=== PATIENT | male | born 1990 | race Caucasian/White ===

== ENCOUNTER 2019-12-04 11:58 | Emergency (ER) | payer BC, OTHER ==
[2019-12-04] MEDS ORDERED: LORazepam 2 MG/ML SDV IVPUSH ONE (12:11)
[2019-12-04] MEDS ORDERED: Sodium Chloride 0.9% 10 ML Syringe FLUSH PRN (12:11)
[2019-12-04] MEDS ORDERED: Sodium Chloride 0.9% 1,000 ML IV ONE (12:11)
--- NOTE | 2019-12-04 12:16 | EDM.PDOC ---
ED HPI GENERAL MEDICAL PROBLEM - General Chief Complaint: Lower Extremity Injury/Pain Stated Complaint: SEIZURE Time Seen by Provider: 12/04/19 12:04 Source of Information: Reports: Patient, Family History Limitations: Reports: No Limitations - History of Present Illness INITIAL COMMENTS - FREE TEXT/NARRATIVE: Patient is an unfortunate 29-year-old male who presents emergency Department today with complaint of right leg pain. Patient was in his normal state of health until proximal 45 minutes prior to arrival when he developed sudden onset of pain to his right groin. He reports the pain has been there ever since and is worse with range of motion or palpation improves with rest does not alleviate. The friend reports that the patient was riding in the car on the way back from [place] after they been drinking all last night and he had a grand mal seizure. The friend reports that the patient lost consciousness was still breathing but was shaking all over, a she did not lose control of his bowel or bladder and the friend reports that for 10 minutes after he had confusion upon arrival emergency department patient is alert and oriented 3 Right Upper Leg Pain Score (Numeric/FACES): 5 - Related Data Allergies Allergy/AdvReac Type Severity Reaction Status Date / Time No Known Allergies Allergy Verified 12/04/19 12:18 Home Meds: Home Meds . [No Known Home Meds] 12/04/19 [History] Past Medical History Neurological History: Reports: Seizure Other Neuro History: has not had a seizure in about 10 years and is not currently on medications. Social & Family History - Tobacco Use Smoking Status *Q: Never Smoker Second Hand Smoke Exposure: No - Caffeine Use Caffeine Use: Reports: Coffee - Recreational Drug Use Recreational Drug Use: No Review of Systems - Review of Systems Review Of Systems: See Below Constitutional: Denies: Chills, Fever Musculoskeletal: Reports: Leg Pain Neurological: Reports: Seizure. Denies: Confusion, Dizziness ED EXAM, GENERAL - Physical Exam Exam: See Below Exam Limited By: No Limitations General Appearance: Alert, WD/WN, Moderate Distress Head: Atraumatic, Normocephalic Neck: Normal Inspection, Supple, Non-Tender, Full Range of Motion Respiratory/Chest: No Respiratory Distress, Lungs Clear, Normal Breath Sounds, No Accessory Muscle Use, Chest Non-Tender Cardiovascular: Normal Peripheral Pulses, Regular Rate, Rhythm, No Edema GI/Abdominal: Normal Bowel Sounds, Soft, Non-Tender, No Organomegaly, No Distention, No Abnormal Bruit, No Mass Back Exam: Normal Inspection, Full Range of Motion, NT Extremities: Normal Inspection, Other (Severe tenderness to right groin, distal neurovascular is intact) Neurological: Alert, Oriented. No: Normal Gait Skin Exam: Warm, Dry, No Rash Course - Vital Signs Last Recorded V/S: Last Vital Signs Temp 97 F 12/04/19 12:04 Pulse 109 H 12/04/19 12:04 Resp 16 12/04/19 12:04 BP 124/77 12/04/19 12:04 Pulse Ox 95 12/04/19 12:04 - Orders/Labs/Meds Orders: Active Orders 24 hr Category Date Time Status NPO [Nothing Per Oral Diet] [DIET] Diet 12/04/19 Dinner Active Hip Min 1V w Pelvis Rt [CR] Stat Exams 12/04/19 15:08 Taken Sodium Chloride 0.9% [Saline Flush] Med 12/04/19 12:11 Active 10 ml FLUSH ASDIRECTED PRN levETIRAcetam [Keppra] 500 mg Med 12/04/19 15:36 Active Sodium Chloride 0.9% [Normal Saline] 100 ml IV ONETIME Saline Lock Insert [OM.PC] Stat Oth 12/04/19 12:11 Ordered Seizure Precautions [OM.PC] Routine Oth 12/04/19 12:11 Ordered Medication Orders Levetiracetam 500 mg/ Sodium (Chloride) 105 mls @ 400 mls/hr IV ONETIME ONE Stop: 12/04/19 15:50 Sodium Chloride (Saline Flush) 10 ml FLUSH ASDIRECTED PRN PRN Reason: Keep Vein Open Last Admin: 12/04/19 12:35 Dose: 10 ml Labs: Laboratory Tests 12/04/19 12/04/19 12/04/19 Range/Units 12:30 12:30 14:20 WBC 14.21 H (4.23-9.07) K/mm3 RBC 5.60 (4.63-6.08) M/mm3 Hgb 17.1 (13.7-17.5) gm/dl Hct 47.8 (40.1-51.0) % MCV 85.4 (79.0-92.2) fl MCH 30.5 (25.7-32.2) pg MCHC 35.8 H (32.2-35.5) g/dl RDW Std Deviation 40.6 (35.1-43.9) fL Plt Count 301 (163-337) K/mm3 MPV 10.4 (9.4-12.3) fl Neut % (Auto) 87.7 H (34.0-67.9) % Lymph % (Auto) 5.7 L (21.8-53.1) % Quay % (Auto) 5.0 L (5.3-12.2) % Eos % (Auto) 0 L (0.8-7.0) Baso % (Auto) 0.3 (0.1-1.2) % Neut # (Auto) 12.46 H (1.78-5.38) K/mm3 Lymph # (Auto) 0.81 L (1.32-3.57) K/mm3 Quay # (Auto) 0.71 (0.30-0.82) K/mm3 Eos # (Auto) 0.00 L (0.04-0.54) K/mm3 Baso # (Auto) 0.04 (0.01-0.08) K/mm3 Sodium 139 (136-145) mEq/L Potassium 4.5 (3.5-5.1) mEq/L Chloride 101 (98-107) mEq/L Carbon Dioxide 18 L (21-32) mEq/L Anion Gap 24.5 H (5-15) BUN 11 (7-18) mg/dL Creatinine 1.2 (0.7-1.3) mg/dL Est Cr Clr Drug Dosing TNP Estimated GFR (MDRD) > 60 (>60) mL/min BUN/Creatinine Ratio 9.2 L (14-18) Glucose 153 H (74-106) mg/dL Calcium 9.6 (8.5-10.1) mg/dL Total Bilirubin 0.4 (0.2-1.0) mg/dL AST TNP ALT 31 (16-63) U/L Alkaline Phosphatase 57 (46-116) U/L Total Protein 8.7 H (6.4-8.2) g/dl Albumin 4.6 (3.4-5.0) g/dl Globulin 4.1 gm/dL Albumin/Globulin Ratio 1.1 (1-2) TSH 3rd Generation 1.290 (0.358-3.74) uIU/mL Urine Color Yellow (Yellow) Urine Appearance Clear (Clear) Urine pH 6.0 (5.0-8.0) Ur Specific [place] > or = 1.030 (1.005-1.030) Urine Protein 2+ H (Negative) Urine Glucose (UA) Negative (Negative) Urine Ketones Negative (Negative) Urine Occult Blood 2+ H (Negative) Urine Nitrite Negative (Negative) Urine Bilirubin Negative (Negative) Urine Urobilinogen 0.2 (0.2-1.0) Ur Leukocyte Esterase Negative (Negative) Urine RBC 5-10 H (0-5) /hpf Urine WBC 0-5 (0-5) /hpf Ur Squamous Epith Cells 0-5 (0-5) /hpf Urine Bacteria Few (FEW) /hpf Urine Mucus Moderate H (FEW) /hpf Urine Opiates Screen (FMHCUU=891) Ur Buprenorphine Scrn (CUTOFF=10) Ur Oxycodone Screen (XBY3OE=694) Urine Methadone Screen (YTK7WB=019) Ur Propoxyphene Screen (BFXFPS=384) Ur Barbiturates Screen (BHXONK=915) Ur Tricyclics Screen (YRXTLC=212) Ur Phencyclidine Scrn (CUTOFF=25) Ur Amphetamine Screen (MBDCTU=055) U Methamphetamines Scrn (DKARDW=090) U Benzodiazepines Scrn (OLHVAS=270) U Cocaine Metab Screen (WGZZFD=426) U Marijuana (THC) Screen (CUTOFF=50) Ethyl Alcohol 0.00 (0.00) gm% 12/04/19 Range/Units 14:20 WBC (4.23-9.07) K/mm3 RBC (4.63-6.08) M/mm3 Hgb (13.7-17.5) gm/dl Hct (40.1-51.0) % MCV (79.0-92.2) fl MCH (25.7-32.2) pg MCHC (32.2-35.5) g/dl RDW Std Deviation (35.1-43.9) fL Plt Count (163-337) K/mm3 MPV (9.4-12.3) fl Neut % (Auto) (34.0-67.9) % Lymph % (Auto) (21.8-53.1) % Quay % (Auto) (5.3-12.2) % Eos % (Auto) (0.8-7.0) Baso % (Auto) (0.1-1.2) % Neut # (Auto) (1.78-5.38) K/mm3 Lymph # (Auto) (1.32-3.57) K/mm3 Quay # (Auto) (0.30-0.82) K/mm3 Eos # (Auto) (0.04-0.54) K/mm3 Baso # (Auto) (0.01-0.08) K/mm3 Sodium (136-145) mEq/L Potassium (3.5-5.1) mEq/L Chloride (98-107) mEq/L Carbon Dioxide (21-32) mEq/L Anion Gap (5-15) BUN (7-18) mg/dL Creatinine (0.7-1.3) mg/dL Est Cr Clr Drug Dosing Estimated GFR (MDRD) (>60) mL/min BUN/Creatinine Ratio (14-18) Glucose (74-106) mg/dL Calcium (8.5-10.1) mg/dL Total Bilirubin (0.2-1.0) mg/dL AST ALT (16-63) U/L Alkaline Phosphatase (46-116) U/L Total Protein (6.4-8.2) g/dl Albumin (3.4-5.0) g/dl Globulin gm/dL Albumin/Globulin Ratio (1-2) TSH 3rd Generation (0.358-3.74) uIU/mL Urine Color (Yellow) Urine Appearance (Clear) Urine pH (5.0-8.0) Ur Specific [place] (1.005-1.030) Urine Protein (Negative) Urine Glucose (UA) (Negative) Urine Ketones (Negative) Urine Occult Blood (Negative) Urine Nitrite (Negative) Urine Bilirubin (Negative) Urine Urobilinogen (0.2-1.0) Ur Leukocyte Esterase (Negative) Urine RBC (0-5) /hpf Urine WBC (0-5) /hpf Ur Squamous Epith Cells (0-5) /hpf Urine Bacteria (FEW) /hpf Urine Mucus (FEW) /hpf Urine Opiates Screen Negative (COEPJL=436) Ur Buprenorphine Scrn Negative (CUTOFF=10) Ur Oxycodone Screen Negative (JPZ7ES=580) Urine Methadone Screen Negative (MQD8PB=476) Ur Propoxyphene Screen Negative (VURZJO=266) Ur Barbiturates Screen Negative (SIROMN=917) Ur Tricyclics Screen Negative (QACMDQ=996) Ur Phencyclidine Scrn Negative (CUTOFF=25) Ur Amphetamine Screen Negative (QWCHDI=591) U Methamphetamines Scrn Negative (EDDOEC=107) U Benzodiazepines Scrn Negative (HSGFCV=566) U Cocaine Metab Screen Negative (IPAMEM=237) U Marijuana (THC) Screen Negative (CUTOFF=50) Ethyl Alcohol (0.00) gm% Meds: Medications Generic Name Dose Route Start Last Admin Trade Name Freq PRN Reason Stop Dose Admin Levetiracetam 500 mg/ Sodium 105 mls @ 400 mls/hr 12/04/19 15:36 Chloride IV 12/04/19 15:50 ONETIME ONE Sodium Chloride 10 ml 12/04/19 12:11 12/04/19 12:35 Saline Flush FLUSH 10 ml ASDIRECTED PRN Administration Keep Vein Open Discontinued Medications Generic Name Dose Route Start Last Admin Trade Name Freq PRN Reason Stop Dose Admin Hydromorphone HCl 0.5 mg 12/04/19 13:06 12/04/19 13:14 Dilaudid IVPUSH 12/04/19 13:07 0.5 mg ONETIME ONE Administration Hydromorphone HCl 0.5 mg 12/04/19 14:47 12/04/19 14:56 Dilaudid IVPUSH 12/04/19 14:48 0.5 mg ONETIME ONE Administration Sodium Chloride 1,000 mls @ 1,000 mls/hr 12/04/19 12:11 12/04/19 12:33 Normal Saline IV 12/04/19 13:10 1,000 mls/hr ONETIME ONE Administration Lorazepam 1 mg 12/04/19 12:11 12/04/19 12:33 Ativan IVPUSH 12/04/19 12:12 1 mg ONETIME ONE Administration Ondansetron HCl 4 mg 12/04/19 13:07 12/04/19 13:14 Zofran IVPUSH 12/04/19 13:08 4 mg ONETIME ONE Administration - Re-Assessments/Exams Free Text/Narrative Re-Assessment/Exam: 12/04/19 13:[address] "impression: #1 nothing acute is appreciated on noncontrast head CT exam." Free Text/Narrative Re-Assessment/Exam: 12/04/[address] Thompson who recommends transfer to [facility] Free Text/Narrative Re-Assessment/Exam: 12/04/19 15:[address] Lopez who accepts patient in transfer to [facility] in [place] Departure - Departure Time of Disposition: 15:46 Disposition: DC/Tfer to Hospice-Med Fac 51 Condition: Good Clinical Impression: Fracture of neck of femur, hip, Seizure - Discharge Information Referrals: PCP,None [Primary Care Provider] - Forms: ED Department Discharge Sepsis Event Note - Evaluation Sepsis Screening Result: No Definite Risk - Focused Exam Vital Signs: Vital Signs Temp Pulse Resp BP Pulse Ox 12/04/19 12:04 97 F 109 H 16 124/77 95 Date Exam was Performed: 12/04/19 Time Exam was Performed: 15:45 - My Orders Last 24 Hours: My Active Orders 12/04/19 12:11 Sodium Chloride 0.9% [Saline Flush] 10 ml FLUSH ASDIRECTED PRN Saline Lock Insert [OM.PC] Stat Seizure Precautions [OM.PC] Routine 12/04/19 15:08 Hip Min 1V w Pelvis Rt [CR] Stat 12/04/19 15:36 levETIRAcetam [Keppra] 500 mg Sodium Chloride 0.9% [Normal Saline] 100 ml IV ONETIME 12/04/19 Dinner NPO [Nothing Per Oral Diet] [DIET] - Assessment/Plan Last 24 Hours: My Active Orders 12/04/19 12:11 Sodium Chloride 0.9% [Saline Flush] 10 ml FLUSH ASDIRECTED PRN Saline Lock Insert [OM.PC] Stat Seizure Precautions [OM.PC] Routine 12/04/19 15:08 Hip Min 1V w Pelvis Rt [CR] Stat 12/04/19 15:36 levETIRAcetam [Keppra] 500 mg Sodium Chloride 0.9% [Normal Saline] 100 ml IV ONETIME 12/04/19 Dinner NPO [Nothing Per Oral Diet] [DIET]
[2019-12-04] MEDS ORDERED: HYDROmorphone 0.5 MG/0.5 ML Syringe IVPUSH ONE ×2 (13:06→14:47)
[2019-12-04] MEDS ORDERED: Ondansetron 4 MG/2 ML SDV IVPUSH ONE (13:07)
--- NOTE | 2019-12-04 13:20 | CT ---
Head CT Technique: Multiple axial sections of the brain were obtained. Intravenous contrast was not utilized. Comparison: No prior intracranial imaging is available. Findings: Ventricles along with basal cisterns and sulci over the convexities appear within normal limits for the patient's age. No abnormal parenchymal densities are seen. No evidence of intracranial hemorrhage. No midline shift or mass effect is seen. Bone window settings were reviewed which show the visualized mastoid sinuses to appear clear. Visualized paranasal sinuses show nothing acute. No acute calvarial abnormality is appreciated. Impression: 1. Nothing acute is appreciated on noncontrast head CT exam. Diagnostic code #1 Study was dictated in [place] Standard Time
[2019-12-04] MEDS ORDERED: levETIRAcetam 500 MG in Sodium Chloride 0.9% 100 ML IV ONE (15:36)
--- NOTE | 2019-12-04 15:56 | CR ---
Pelvis and right hip: AP view of the pelvis was obtained as well as crosstable lateral view of the right hip. Angulated subcapital fracture is noted within the right hip. No additional fracture or other abnormality is appreciated. Impression: 1. Angulated right hip fracture as noted above. Diagnostic code #3 Study was dictated in [place] Standard Time
[2019-12-04] MEDS ORDERED: Sodium Chloride 0.9% 1,000 ML ONE (16:21)
== END 2019-12-04 16:35 | disposition hospice, inpatient (51) ==
LOC: JD.ED 11:58
DX: S72.011A Unspecified intracapsular fracture of right femur, initial encounter for closed fracture (principal); R56.9 Unspecified convulsions; X58.XXXA Exposure to other specified factors, initial encounter
CPT/HCPCS: 36415; 70450; 73501; 80053; 80306; 80320; 81001; 84443; 85025; 96361; 96374; 96375; 96376; 99285; J1170; J1953; J2060; J2405; J7030; J7050; 99284; G0480